=== PATIENT | female | born 1960 | race Caucasian/White ===

== ENCOUNTER 2017-01-22 19:01 | Emergency (ER) | payer OTHER ==
--- NOTE | ~2017-01-22 | CR72 ---
[facility] A Service of [facility] & [facility] RADIOLOGY TEXT RESULTS PATIENT: NAIMA [place] LOCATION: [facility] : 58 UNIT #: [id number] AGE: [address]: Bonnie Taylor MD SEX: F ORDER DR: [id number] [facility] [address] [place], [place] [address] [id number] MR#: [id number] Acc #: [id number] NAME: NAIMA [place] : 1960 SEX: F STUDY DATE/TIME: 01/22/2017 19:05 UNIT: [facility] ROOM: STUDY DESCRIPTION: CR Chest Single View Portable Attending Physician: Bonnie Taylor M.D. Ordering Physician: Bonnie Taylor M.D. Primary Care Physician: Vernon De La Garza M.D. MEDICAL IMAGING REPORT This report is preliminary unless electronic signature is present EXAM Portable chest HISTORY Chest pain radiating into left arm. Shortness of air, onset today. FINDINGS A single AP portable view of the chest shows both lungs to be clear. The heart is normal in size. The mediastinal contour is normal. No significant bone abnormalities are seen. IMPRESSION Normal portable chest. Dictated by... Ruby Dutton M.D. THIS IS AN ELECTRONICALLY VERIFIED REPORT Ruby Dutton M.D. at 01/23/2017 2:08 PM JOSÉ/carlos alberto TD: 01/23/2017 10:02 JOB #: [id number] MEDICAL IMAGING REPORT COPY
--- NOTE | ~2017-01-22 | CT16 ---
[facility] A Service [facility] RADIOLOGY TEXT RESULTS PATIENT: NAIMA [place] LOCATION: [facility] : 58 UNIT #: [id number] AGE: [address]: Bonnie Taylor MD SEX: F ORDER DR: [id number] [address] [place], [place] [address] [id number] MR#: [id number] Acc #: [id number] NAME: NAIMA [place] : 1960 SEX: F STUDY DATE/TIME: 01/22/2017 21:05 UNIT: [facility] ROOM: STUDY DESCRIPTION: CT Angio Chest for PE Attending Physician: Bonnie Taylor M.D. Ordering Physician: Bonnie Taylor M.D. Primary Care Physician: Vernon De La Garza M.D. MEDICAL IMAGING REPORT This report is preliminary unless electronic signature is present EXAM CT angio chest for PE. INDICATION Chest pain for 1 day. Elevated D-dimer. TECHNIQUE CT angiography of the chest utilizing 80 mL Isovue-370 IV contrast. Coronal 3-D MIP reconstructions and standard sagittal reconstructions were obtained. This CT exam was performed with one or more of the following radiation dose reduction techniques: automatic exposure control, adjustment of mA and/or kV according to patient size, and iterative reconstruction. COMPARISON Chest radiograph dated 01/22/2017. FINDINGS No pulmonary embolus. No thoracic aortic aneurysm or dissection. No pericardial or pleural effusion. There is no focal airspace opacity. Central airways are patent. The patient has bilateral breast augmentation. Limited images of the upper abdomen were obtained. There are no acute findings. No acute osseous abnormalities. IMPRESSION Negative for pulmonary embolus. No acute findings in the chest. Dictated by... [facility] A Service [facility] RADIOLOGY TEXT RESULTS PATIENT: NAIMA [place] LOCATION: [facility] : 58 UNIT #: [id number] AGE: [address]: Bonnie Taylor MD SEX: F ORDER DR: Scott P. Sona, M.D. THIS IS AN ELECTRONICALLY VERIFIED REPORT Scott Magallanes M.D. at 01/23/2017 12:20 PM CAMPOS/shilpa TD: 01/23/2017 11:31 JOB #: [id number] MEDICAL IMAGING REPORT COPY
--- NOTE | ~2017-01-22 | EKG ---
PATIENT: NAIMA [place] UNIT #: [id number] Ventricular Rate: 101 BPM Atrial Rate: 101 BPM P-R Interval: 136 ms QRS Duration: 70 ms Q-T Interval: 340 ms QTC Calculation(Bezet): 440 ms P [place]: 54 degrees Calculated R [place]: 25 degrees Calculated T [place]: 46 degrees Diagnosis Line: Sinus tachycardia Diagnosis Line: Low voltage QRS Diagnosis Line: Borderline ECG Diagnosis Line: No previous ECGs available Diagnosis Line: Confirmed by DAJUAN REED MD ([id number]) on Diagnosis Line: 01/23/2017 11:26:15 AM INTERPRETING MD: DEREK TUBBS
[2017-01-22 19:03] LABS: BASOPHIL# 0.1 X10e3 (0-0.3); BASOPHIL% 0.8 % (0-2.5); EOSINOPHIL# 0.1 X10e3 (0-0.7); HEMATOCRIT 43.3 % (35.0-45.0); HEMOGLOBIN 14.5 gm/dL (12.0-16.0); LYMPHOCYTE# 2.8 X10e3 (1.0-3.5); LYMPHOCYTE% 29.5 % (17.0-45.0); MEAN CELL VOLUME 91.5 FL (83-96); MEAN CORPUSCULAR HEMOGLOBIN 30.7 PG (28-34); MEAN CORPUSCULAR HGB CONC 33.5 g/dL (30-36); MEAN PLATELET VOLUME 9.1 FL (6.5-11.5); MONOCYTE# 0.9 X10e3 (0-1.0); MONOCYTE% 9.3 % (3.0-12.0); NEUTROPHIL# 5.7 X10e3 (1.5-7.1); NEUTROPHIL% 59.4 % (40-75); PLATELET COUNT 253 X10e3 (140-420); RED BLOOD COUNT 4.73 X10e (3.90-5.30); RED CELL DISTRIBUTION WIDTH 13.3 % (11.0-15.5); WHITE BLOOD COUNT 9.7 X10e3 (4.0-10.5)
[2017-01-22 19:04] LABS: DIFF IND NO
[2017-01-22 19:19] LABS: PROTHROMBIN TIME (PATIENT) 10.6 SECONDS (9.6-11.5)
[2017-01-22 19:31] LABS: ALBUMIN SERUM 4.4 g/dL (3.5-5.0); ALKALINE PHOSPHATASE 96 U/L (32-92); ALT (SGPT) 28 U/L (10-40); AST (SGOT) 27 U/L (10-42); BILIRUBIN, DIRECT 0.1 mg/dL (0.0-0.2); BILIRUBIN,INDIRECT 0.5 mg/dL (0.0-0.9); BILIRUBIN,TOTAL 0.6 mg/dL (0.2-2.0); BLOOD UREA NITROGEN 18 mg/dL (9-23); CALCIUM SERUM 9.1 mg/dL (8.4-10.2); CARBON DIOXIDE 26 mmol/L (22-31); CHLORIDE 106 mmol/L (100-111); CREATININE SERUM 0.9 mg/dL (0.6-1.4); GLOM FILT RATE Estimated ABOVE60 mL/min (>60); GLUCOSE FASTING 100 mg/dL (70-110); POTASSIUM 3.8 mmol/L (3.5-5.1); PROTEIN TOTAL SERUM 7.7 g/dL (6.0-8.3); SODIUM 137 mmol/L (135-145)
[2017-01-22 19:56] LABS: POC - CKMB <1.0 ng/mL (0.0-7.9); POC - TROPONIN <0.05 ng/mL (<=0.05)
[2017-01-22] MEDS ORDERED: ZYRTEC10 M1 PO (19:57)
[2017-01-22] MEDS ORDERED: (NONE)2.5 MG PO (19:58)
[2017-01-22 21:59] LABS: POC - CKMB <1.0 ng/mL (0.0-7.9); POC - TROPONIN <0.05 ng/mL (<=0.05)
== END 2017-01-22 22:56 | disposition home or self-care (01) ==
LOC: CED 19:01
PROVIDERS: Emergency Medicine
DX: R07.89 Other chest pain (principal); Z79.899 Other long term (current) drug therapy
CPT/HCPCS: 71010; 71275; 80048; 80076; 82553; 84484; 85025; 85379; 85610; 93005; 96374; 99284; J1885; Q9967